=== PATIENT | male | born 1970 | race Hispanic/Latino ===

== ENCOUNTER 2025-07-29 14:28 | Emergency (ER) | payer OTHER, SELFPAY ==
[2025-07-29] MEDS ORDERED: Ketorolac Tromethamine 30 MG (1 mL) VIAL ONE (15:13)
== END 2025-07-29 16:52 | disposition home or self-care (01) ==
LOC: ERS 14:28
DX: D17.22 Benign lipomatous neoplasm of skin and subcutaneous tissue of left arm (principal); F17.290 Nicotine dependence, other tobacco product, uncomplicated
CPT/HCPCS: 96372; 99282; J1885